=== PATIENT | male | born 1960 | race Caucasian/White ===

== ENCOUNTER 2020-12-30 15:12 | Emergency (ER) | payer OTHER ==
[~2020-12-30 15:12] MED LIST: DIPH-423 PO
== END 2020-12-30 17:31 | disposition left against medical advice (07) ==
LOC: ER 15:13
DX: Z53.21 Procedure and treatment not carried out due to patient leaving prior to being seen by health care provider (principal)

== ENCOUNTER 2022-03-18 08:46 | Emergency (ER) | payer MEDICAID, OTHER ==
[~2022-03-18] VITALS: Ht 180.3 cm; Wt 84.1 kg
[2022-03-18 08:52] VITALS: BP 170/107
--- NOTE | 2022-03-18 10:20 | NUR ---
Supa asked to used restroom. When supa was leaving the bathroom he stated, "How do I get out of here?" Asked patient, "You want to leave" he replied, "Yes, how do I get out of here".
== END 2022-03-18 10:23 | disposition left against medical advice (07) ==
LOC: ER 08:46
DX: R06.02 Shortness of breath (principal); R19.7 Diarrhea, unspecified; M79.18 Myalgia, other site; Z53.21 Procedure and treatment not carried out due to patient leaving prior to being seen by health care provider

== ENCOUNTER 2022-07-20 20:01 | Emergency (ER) | payer MEDICAID ==
[~2022-07-20] VITALS: Ht 177.8 cm; Wt 81.8 kg
[2022-07-20] MEDS ORDERED: normal saline 1000ML IV soln IVB ONE (21:20)
[2022-07-20 21:28] LABS: ALANINE AMINOTRANSFERASE 30 U/L (12-78); ALKALINE PHOSPHATASE 88 IU/L (46-116); ANION GAP 8 (8-16); ASPARTATE AMINO TRANSFERASE 21 U/L (10-37); BILIRUBIN,TOTAL 0.4 MG/DL (0.1-1.0); BLOOD UREA NITROGEN 21 MG/DL (7-18); BUN/CREATININE RATIO 16.5 (10.0-20.0); CALCIUM 9.5 MG/DL (8.5-10.1); CHLORIDE 101 MMOL/L (99-107); CREATININE 1.27 MG/DL (0.60-1.10); GLUCOSE 82 MG/DL (70-104); POTASSIUM 3.8 MMOL/L (3.5-5.1); SODIUM 137 MMOL/L (135-145); TOTAL CARBON DIOXIDE 28.4 MMOL/L (24-32); TOTAL PROTEIN 8.1 G/DL (6.4-8.2); eGFR 57 ML/MIN
--- NOTE | 2022-07-20 21:39 | NUR ---
leonardot attempts to place iv. Pt refusing further attempts, does not want fluids. provided with large water for discharge. dr. brijesh garrett.
[2022-07-20 21:40] VITALS: BP 148/94
== END 2022-07-20 21:42 | disposition home or self-care (01) ==
LOC: ER 20:01
DX: R53.1 Weakness (principal); R07.89 Other chest pain; F17.200 Nicotine dependence, unspecified, uncomplicated; Z88.8 Allergy status to other drugs, medicaments and biological substances
CPT/HCPCS: 36415; 71045; 80053; 83735; 83880; 84484; 93005; 99285

== ENCOUNTER 2023-11-03 14:25 | Emergency (ER) | payer MEDICAID, OTHER ==
[~2023-11-03] VITALS: Ht 177.8 cm; Wt 81.6 kg
[~2023-11-03 14:25] MED LIST changes: +LOPE2CAP PO; +ONDA-245 PO
[2023-11-03 14:49] VITALS: TEMP 98.8
[2023-11-03] MEDS: LIDOcaine 1% W/epiNEPHrine 1:100,000 20ml vial SQ STA (16:01)
[2023-11-03 16:38] VITALS: BP 178/110; PULSE 64; RESP 18; O2SAT 98
== END 2023-11-03 17:00 | disposition home or self-care (01) ==
LOC: ER 14:26
DX: S61.412A Laceration without foreign body of left hand, initial encounter (principal); Z88.8 Allergy status to other drugs, medicaments and biological substances; Z79.899 Other long term (current) drug therapy; Z86.73 Personal history of transient ischemic attack (TIA), and cerebral infarction without residual deficits; W45.8XXA Other foreign body or object entering through skin, initial encounter; Y93.89 Activity, other specified; Y92.89 Other specified places as the place of occurrence of the external cause; Y99.8 Other external cause status
CPT/HCPCS: 12002; 99282; A6222; A6258; A6446; A6449

== ENCOUNTER 2023-11-07 14:39 | Emergency (ER) | payer OTHER ==
[~2023-11-07] VITALS: Ht 177.8 cm; Wt 84.1 kg
[2023-11-07 14:43] VITALS: TEMP 98.7
[2023-11-07] MEDS: cephalexin 250mg capsule PO ONE (16:20)
[2023-11-07] MEDS: HYDROcodone/acetaminophen 10/325mg tab PO ONE (16:21)
[2023-11-07 16:29] VITALS: BP 176/92; PULSE 88; RESP 18; O2SAT 98
[2023-11-07] MEDS ORDERED: CEPH-585 PO (17:24)
[2023-11-07] MEDS ORDERED: HYDR-3965 PO (17:24)
== END 2023-11-07 16:32 | disposition home or self-care (01) ==
LOC: ER 14:40
DX: S61.412D Laceration without foreign body of left hand, subsequent encounter (principal); M79.642 Pain in left hand; Z88.8 Allergy status to other drugs, medicaments and biological substances; Z79.2 Long term (current) use of antibiotics; Z79.899 Other long term (current) drug therapy; Z86.73 Personal history of transient ischemic attack (TIA), and cerebral infarction without residual deficits; X58.XXXD Exposure to other specified factors, subsequent encounter
CPT/HCPCS: 99283

== ENCOUNTER 2024-02-10 09:47 | Emergency (ER) | payer OTHER ==
[~2024-02-10] VITALS: Ht 177.8 cm; Wt 61.5 kg
[2024-02-10] MEDS ORDERED: DOXY-224 PO (10:44)
[2024-02-10] MEDS: DOXYCYCLINE 100MG CAPSULE PO STA (10:54)
[2024-02-10 11:06] VITALS: BP 177/82; PULSE 72; RESP 16; TEMP 98.5; O2SAT 99
== END 2024-02-10 11:10 | disposition home or self-care (01) ==
LOC: ER 09:48
DX: M21.242 Flexion deformity, left finger joints (principal); Z86.73 Personal history of transient ischemic attack (TIA), and cerebral infarction without residual deficits; Z87.442 Personal history of urinary calculi; Z88.8 Allergy status to other drugs, medicaments and biological substances; Z98.890 Other specified postprocedural states
CPT/HCPCS: 73130; 99283